=== PATIENT | female | born 1945 | race Caucasian/White ===

== ENCOUNTER → 2016-09-20 | Outpatient (CLI) | payer OTHER ==
--- NOTE | 2016-09-20 15:34 | KCIC ---
PROCEDURE MRI lumbar spine without contrast. HISTORY Lumbar radicular pain, low back pain, left hip pain bilateral feet pain, symptoms since 2003 worse since May 2016 TECHNIQUE Multiplanar, multi sequential non contrast MR imaging was performed of the lumbar spine. COMPARISON None FINDINGS There is grade 1 anterior spondylolisthesis at L4-5 at which there is facet hypertrophic change. Vertebral body stature is preserved. There is moderate to severe degenerative disc disease at L4-5, to a lesser degree at L5-S1 and minimally at L3-4. There is likely hemangioma of the T11 vertebral body, slightly hyperintense on all sequences. Conus terminates normally at L1-2. There is nonspecific edema of the posterior subcutaneous fat of the lower back, no defined focal fluid collection in this area. L2-3: Spinal canal and neural foramina are adequate. L3-4: There is negligible disc osteophyte complex. There is mild buckling of the ligamentum flavum and facet hypertrophic change. Spinal canal is adequate. There is very mild narrowing of the right neural foramen, left neural foramen adequate. L4-5: There is moderate to severe facet degenerative change, fluid in the facet articulations bilaterally. There is moderate buckling of the ligamentum flavum. There is likely a tiny synovial cyst underlying the left ligamentum flavum, does not contribute to additional spinal stenosis. There is partial uncovering of the posterior aspect of the disc due to spondylolisthesis. Combination of findings results in overall moderate spinal stenosis, left greater than right lateral recess stenosis with impingement of the descending left L5 nerve root. There is small disc osteophyte complex and protrusion in the inferior left neural foramen. There is moderate to severe narrowing of the left neural foramen with contact exiting left L4 nerve root, right neural foramen overall adequate. There is large hemangioma of the left L4 pedicle. L5-S1: There is mild facet hypertrophic change greater on the right. There is a small extrusion extending below the intervertebral disc space in the left paracentral region without significant neural impingement or spinal stenosis. Neural foramina are adequate. IMPRESSION 1. There is moderate spinal stenosis L4-5, left greater than right lateral recess stenosis with impingement of the descending left L5 nerve root. There is grade 1 anterior spondylolisthesis at L4-5 due to facet hypertrophic change. There is moderate to severe narrowing of the left L4-5 neural foramen, contact exiting left L4 nerve root. 2. There is moderate to severe degenerative disc disease L4-5, minimally at L5-S1. Electronically signed by: Redd Romero MD (Sep 20, 2016 15:33:34)
== END | disposition home or self-care (01) ==
LOC: KCIC MRI 14:09
PROVIDERS: ATTEND Anesthesiology
DX: M48.06 Spinal stenosis, lumbar region (principal); M43.16 Spondylolisthesis, lumbar region; M51.36 Other intervertebral disc degeneration, lumbar region; M25.78 Osteophyte, vertebrae
CPT/HCPCS: 72148